=== PATIENT | male | born 1975 | race Hispanic/Latino ===

== ENCOUNTER 2017-03-09 14:41 | Emergency (ER) | payer OTHER ==
[~2017-03-09] VITALS: Ht 177.8 cm; Wt 68.0 kg
== END 2017-03-09 15:35 | disposition home or self-care (01) ==
LOC: ED 14:41
DX: F91.9 Conduct disorder, unspecified (principal); T50.995A Adverse effect of other drugs, medicaments and biological substances, initial encounter
CPT/HCPCS: 99282

== ENCOUNTER 2021-04-27 12:10 | Outpatient (CLI) | payer OTHER ==
[~2021-04-27] VITALS: Ht 177.8 cm; Wt 70.3 kg
== END 2021-04-27 20:38 | disposition home or self-care (01) ==
LOC: INF 12:10
PROVIDERS: ATTEND Family Medicine
DX: Z23 Encounter for immunization (principal); U07.1 COVID-19
CPT/HCPCS: 96365; M0244